=== PATIENT | female | born 1985 | race Caucasian/White ===

== ENCOUNTER 2017-06-11 07:40 | Emergency (ER) | payer SELFPAY ==
[2017-06-11 08:03] VITALS: BP 101/65
--- NOTE | 2017-06-11 08:17 | UC ---
Ear Complaint HPI - HPI Summary HPI Summary: ONSET OF BILATERAL EAR PAIN AND SLIGHTLY MUFFLED HEARING LAST NIGHT. NO DOCUMENTED FEVER. FEELS A BIT "OFF". NO URI SX. - History of Current Complaint Chief Complaint: UCEar Stated Complaint: BILATERAL EAR COMPLAINT Time Seen by Provider: 06/11/17 08:01 Hx Obtained From: Patient Hx Last Menstrual Period: 9 mos Onset/Duration: Gradual Onset, Lasting Hours, Still Present Severity Initially: Moderate Severity Currently: Moderate Pain Intensity: 4 Pain Scale Used: 0-10 Numeric Aggravating Factors: Nothing Alleviating Factors: Nothing Associated Signs/Symptoms: Positive: Hearing Loss. Negative: Discharge, URI Symptoms - Allergies/Home Medications Allergies/Adverse Reactions: Allergies Allergy/AdvReac Type Severity Reaction Status Date / Time Amoxicillin Allergy Intermediate GI Upset Verified 06/11/17 07:50 Latex Allergy Intermediate Rash Verified 06/11/17 07:50 Home Medications: Home Medications NK [No Home Medications Reported] 06/11/17 [History Confirmed 06/11/17] PMH/Surg Hx/FS Hx/Imm Hx Previously Healthy: Yes - Surgical History Surgical History: Yes Surgery Procedure, Year, and Place: C-SECT X 5, last c section was 12/22/13. Hysterectomy DEC 2015 - Family History Known Family History: Positive: None Negative: Hypertension Family History: no reported cardio vascular issues reported in family lineage - Social History Alcohol Use: Occasionally Substance Use Type: None Smoking Status (MU): Heavy Every Day Tobacco Smoker Type: Cigarettes Amount Used/How Often: 1/2 PPD - Immunization History Most Recent Influenza Vaccination: 2016 Review of Systems Constitutional: Negative ENT: Ear Ache Respiratory: Negative Cardiovascular: Negative Gastrointestinal: Negative All Other Systems Reviewed And Are Negative: Yes Physical Exam Triage Information Reviewed: Yes Completion Of Physical Exam Limited Due To: Extremis Appearance: Well-Appearing, No Pain Distress, Well-Nourished Vital Signs: Initial Vital Signs Temp 98.9 F 06/11/17 07:51 Pulse 72 06/11/17 07:51 Resp 16 06/11/17 07:51 BP 101/65 06/11/17 07:51 Pulse Ox 100 06/11/17 07:51 Vital Signs Reviewed: Yes Eyes: Positive: Conjunctiva Clear ENT: Positive: Hearing grossly normal, Pharynx normal, TMs normal Neck: Positive: Supple, Nontender, No Lymphadenopathy Respiratory Exam: Normal Cardiovascular Exam: Normal Abdomen Description: Positive: Soft Musculoskeletal: Positive: No Edema Neurological: Positive: Alert Psychological: Positive: Age Appropriate Behavior Skin: Negative: rashes Ear Complaint Course/Dx - Differential Dx/Diagnosis Provider Diagnoses: BILATERAL EAR PAIN, NOS Discharge - Discharge Plan Condition: Stable Disposition: HOME Patient Education Materials: Earache (ED) Referrals: Lo Obrien NP [Nurse Practitioner] - If Needed Additional Instructions: EAR PAIN, NON-SPECIFIC There are many causes of ear pain in adults. Pain that's felt in the ear can actually be coming from somewhere nearby. This is called "referred pain." Problems in the teeth, throat, or jaw joint (TMJ) often cause ear pain. Sometimes the physical exam or medical history suggests a treatable cause. If not, we may wait for the pain to go away. New symptoms may offer a clue to the cause of the pain. Report any changes to your care provider. These are some conditions that can cause ear pain, but may not be obvious from physical examination: Eardrum injury Pressure changes (barotrauma) due to swimming or shock waves Mild trauma such as Q-tip injury or finger-picking the outer ear Mild outer ear infection (swimmer's ear) Low-grade or chronic middle ear infection Mastoiditis (infection in the bone behind the ear) TMJ syndrome or arthritis of the jaw Pressure from hard earwax Tooth infection Infected tonsil Sinus infection Nerve disease such as Anton's Palsy Follow your care provider's treatment recommendations. Let the ear rest. Don't insert cotton swabs, dig at the ear with your finger, or force your ears to "pop." If you're not improving after a few days, or if new symptoms arise, see the doctor. Watch for: Decreased hearing Spreading pain or headache Drainage or bleeding from the ear Fever Weakness of the face muscles Other new symptoms
== END 2017-06-11 08:12 | disposition home or self-care (01) ==
LOC: UCCORT 07:40
DX: H92.03 Otalgia, bilateral (principal); Z72.0 Tobacco use
CPT/HCPCS: 99211; G0463

== ENCOUNTER 2024-04-04 20:50 | Inpatient (IN) ==
[2024-04-04 22:58] LABS: ABS Basophils 0.1 10^3/uL (0.0-0.1); ABS Eosinophils 0.1 10^3/uL (0.0-0.5); ABS Lymphocytes 3.2 10^3/uL (1.0-4.8); ABS Monocytes 1.2 10^3/uL (0.0-0.9); ABS Neutrophils 6.8 10^3/uL (1.5-7.6); Eosinophil % 0.9 %; Hematocrit 41.8 % (35-45); Hemoglobin 14.3 g/dL (11.5-14.3); Lymphocyte % 28.2 %; Mean Corpuscular Hemoglobin 30.3 pg (27-33); Mean Corpuscular Hgb Conc 34.2 g/dL (31-36); Mean Corpuscular Volume 88.6 fL (80-97); Platelet Count 281 10^3/uL (150-450); Red Blood Count 4.71 10^6/uL (3.63-4.92); Red Cell Distribution Width 13.2 % (12-17); White Blood Count 11.4 10^3/uL (3.8-11.8)
[2024-04-04 23:10] LABS: Urine Appearance Clear; Urine Bilirubin Negative (Negative); Urine Blood 1+ (Negative); Urine Color Light-Yellow; Urine Glucose Negative (Negative); Urine Ketones Negative (Negative); Urine Nitrite Negative (Negative); Urine Protein Negative (Negative); Urine Specific Gravity 1.012 (1.002-1.030); Urine Urobilinogen Negative (Negative); Urine pH 5.5 (5.0-8.0)
[2024-04-04 23:25] LABS: Urine Benzodiazepine Screen None Detected (None Detect); Urine Cannabinoids Screen Presumptive Positive (None Detect); Urine Opiates Screen None Detected (None Detect)
[2024-04-04 23:32] LABS: Urine Bacteria 1+ /HPF (Absent); Urine Red Blood Cell Trace(0-2/hpf) /HPF (0-Trace); Urine Squamous Epithelial Cell Present /HPF (Absent); Urine White Blood Cell Trace(0-5/hpf) /HPF (0-Trace)
[2024-04-04 23:50] LABS: ALT 5 U/L (7-52); AST 8 U/L (13-39); Acetaminophen 16 mcg/mL; Albumin 4.6 g/dL (3.2-5.2); Alcohol, S 13 mg/dL (<13); Alkaline Phosphatase 52 U/L (35-149); Anion Gap 9 mmol/L (2-16); Blood Urea Nitrogen 7 mg/dL (6-24); CO2 Carbon Dioxide 25 mmol/L (22-32); Calcium 10.1 mg/dL (8.6-10.3); Chloride 102 mmol/L (101-111); Creatinine, Serum 0.76 mg/dL (0.51-0.95); Globulin 2.3 g/dL (2-4); Glucose 101 mg/dL (70-100); Potassium 3.8 mmol/L (3.5-5.0); Salicylate < 2.50 mg/dL (<30); Sodium 136 mmol/L (135-145); Total Bilirubin 1.8 mg/dL (0.2-1.0); Total Protein 6.9 g/dL (6.4-8.9); eGFR CKD-EPI 103.4 (>60)
[2024-04-04 23:56] LABS: HCG Pregnancy < 0.60 mIU/mL
[2024-04-05] MEDS: Al Hydrox/Mg Hydrox/Simet LIQ 30 ML UDC PO PRN (20:46)
[2024-04-06 10:09] LABS: HDL Cholesterol 47.6 mg/dL
[2024-04-13 10:09] VITALS: BP 116/78
== END 2024-04-13 11:15 | disposition home or self-care (01) | DRG 751 ==
LOC: ED 20:50 → EDHOLD 04-05 11:22 → BSU 04-05 13:22
PROVIDERS: ADMIT Student in an Organized Health Care Education/Training Program; ATTEND Psychiatry & Neurology Psychiatry